=== PATIENT | male | born 1980 | race Caucasian/White ===

== ENCOUNTER 2019-07-28 14:49 | Emergency (ER) | payer BC ==
[2019-07-28 14:52] VITALS: BMI 26.6
[2019-07-28] MEDS ORDERED: ONDANSETRON 4 MG/2 ML VIAL IVPB ONE ×2 (14:53→15:42)
[2019-07-28] MEDS ORDERED: SODIUM CHLORIDE 1,000 ML IV STA (14:53)
[2019-07-28] MEDS ORDERED: KETOROLAC TROMETHAMINE 30 MG/1 ML VIAL IVPUSH ONE (14:54)
[2019-07-28] MEDS ORDERED: ONDANSETRON 4 MG/2 ML VIAL ONE ×2 (14:58→15:52)
[2019-07-28] MEDS ORDERED: KETOROLAC TROMETHAMINE 30 MG/1 ML VIAL ONE (14:58)
[2019-07-28 15:11] VITALS: BP 126/79; PULSE 78; TEMP 98.3
[2019-07-28 15:26] LABS: BASO % 0.3 % (0-2.0); EOS % 1.4 % (0-4.5); HEMATOCRIT 44.8 % (35.4-49); MCH 29.6 pg (25.7-33.7); MCHC 33.6 g/dl (32.0-35.9); MEAN CELL VOLUME 88.2 fl (80-96); MEAN PLT VOLUME 7.4 fl (7.5-11.1); MONO % 8.6 % (3.8-10.2); NEUT % 53.7 % (42.8-82.8); PLATELET COUNT 329 K/MM3 (134-434); RBC 5.08 M/mm3 (4.00-5.60); RDW 12.3 % (11.9-15.9); WHITE BLOOD COUNT 7.2 K/mm3 (4.0-10.8)
[2019-07-28 15:33] LABS: ALBUMIN 4.7 g/dl (3.4-5.0); BILIRUBIN,TOTAL 0.5 mg/dl (0.2-1); CALCIUM 9.9 mg/dl (8.5-10); CREATININE 1.1 mg/dl (0.55-1.3); POTASSIUM 3.9 mmol/L (3.5-5.1); TOT PROT 7.6 g/dl (6.4-8.2)
[2019-07-28] MEDS ORDERED: morphine CARPU-JECT 4 MG/1 ML DISP.SYRIN IVPUSH ONE (15:41)
[2019-07-28] MEDS ORDERED: morphine SULFATE 4 MG/ML VIAL ONE (15:53)
[2019-07-28] MEDS ORDERED: TAMSULOSIN HCL 0.4 MG CAP PO ONE (16:31)
--- NOTE | 2019-07-28 16:53 | PDOC ---
Documentation entered by Sari Ghosh SCRIBE, acting as scribe for Miki Burnett MD. Miki Burnett MD: This documentation has been prepared by the Davina thurman Adrianna, SCRIBE, under my direction and personally reviewed by me in its entirety. I confirm that the documentation accurately reflects all work, treatment, procedures, and medical decision making performed by me. History of Present Illness - General Chief Complaint: Pain, Acute Stated Complaint: BACK AND FLANK PAIN - History of Present Illness Initial Comments: The patient is a 38 year old male, with a significant PMH of TMJ, who presents to the ED for evaluation of low back pain and abdominal pain that began at 1pm today. Patient complains of sudden onset right-sided low back/flank pain that began 2 hours prior to arrival. He notes the pain is a 9/10 in nature and radiates to his right lower quadrant. Patient endorses multiple episodes of associated nausea and NBNB vomit. Denies any urinary symptoms, but does report difficulty urinating while in the ED. He states his last normal bowel movement was yesterday. Patient notes he has been taking Aleve for SI joint strain, and was last adjusted at the chiropractor yesterday. Denies any history of kidney stones. Allergies: Sensitivity to medications (always experiences the side effects) Surgical History: None reported Social History: Social EtOH use. Denies tobacco or illicit drug use. Past History - Past Medical History Allergies/Adverse Reactions: Allergies Allergy/AdvReac Type Severity Reaction Status Date / Time PAIN MEDS? AdvReac Uncoded 07/28/19 15:14 Home Medications: Ambulatory Orders Diclofenac Potassium 50 mg PO TID PRN #20 tablet 07/28/19 Ondansetron [Zofran *Odt*] 1 - 2 tab SL TID PRN #15 od.tablet 07/28/19 Oxycodone HCl/Acetaminophen [Percocet 5-325 mg Tablet] 1 - 2 tab PO Q4H PRN #12 tablet MDD 6 07/28/19 COPD: No - Psycho Social/Smoking Cessation Hx Smoking History: Never smoked Hx Alcohol Use: No Drug/Substance Use Hx: No Review of Systems - Review of Systems Comments:: GENERAL/CONSTITUTIONAL: No fever or chills. No weakness. HEAD, EYES, EARS, NOSE AND THROAT: No change in vision. No ear pain or discharge. No sore throat. CARDIOVASCULAR: No chest pain or shortness of breath. RESPIRATORY: No cough, wheezing, or hemoptysis. GASTROINTESTINAL: +Nausea. +NBNB vomit. +RLQ pain. No diarrhea or constipation. GENITOURINARY: +Difficulty urinating. No dysuria, frequency, or hematuria. MUSCULOSKELETAL: +Right low back/flank pain. No joint or muscle swelling or pain. No neck pain. SKIN: No rash NEUROLOGIC: No headache, vertigo, loss of consciousness, or change in strength/ sensation. ENDOCRINE: No increased thirst. No abnormal weight change. HEMATOLOGIC/LYMPHATIC: No anemia, easy bleeding, or history of blood clots. ALLERGIC/IMMUNOLOGIC: No hives or skin allergy. *Physical Exam - Vital Signs Last Vital Signs Temp Pulse Resp BP Pulse Ox 0/0 L 07/28/19 14:50 - Physical Exam Comments: GENERAL: Awake, alert, and fully oriented, in no acute distress HEAD: No signs of trauma EYES: PERRLA, EOMI, sclera anicteric, conjunctiva clear. No pallor or icterus. ENT: Auricles normal inspection, hearing grossly normal, nares patent, oropharynx clear without exudates. Moist mucosa NECK: Normal ROM, supple, no lymphadenopathy, JVD, or masses LUNGS: Breath sounds equal, clear to auscultation bilaterally. No wheezes, and no crackles HEART: Regular rate and rhythm, normal S1 and S2, no murmurs, rubs or gallops ABDOMEN: +Somewhat distended with decreased bowel sounds, although they are present. +Moderate to severe right lower quadrant and right mid-abdominal tenderness to palpation, with suggestion of guarding and rebound. No masses or hernias. GENITOURINARY: No abnormalities. EXTREMITIES: Normal range of motion, no edema. No clubbing or cyanosis. No cords, erythema, or tenderness NEUROLOGICAL: Cranial nerves II through XII grossly intact. Normal speech, normal gait SKIN: Warm, Dry, normal turgor, no rashes or lesions noted. No pallor or icterus. ED Treatment Course - LABORATORY CBC & Chemistry Diagram: 07/28/19 14:55 07/28/19 14:55 - RADIOLOGY Radiograph Interpretation: EXAM#: TYPE/EXAM: RESULT: [id number] CT/ABDOMEN PELVIS CT W/O CONTR Clinical history: 38-year-old man with Comparison: Specified abdominal pain. None. Impression: Mild right hydronephrosis and proximal hydroureter to the level of a 4.5 mm proximal ureteral calculus at L3. Left renal cyst. Mild mesenteric panniculitis. Hepatomegaly with a fatty liver. Clinical correlation advised. Reported By: Juancarlos Meza MD 07/28/19 16:16 Medical Decision Making - Medical Decision Making 07/28/19 14:54 Right flank pain radiating to the right lower quadrant and groin since 1 PM accompanied by nausea vomiting. Had difficulty obtaining a specimen of urine upon arrival, although he had not noticed any urinary symptoms before. Has been taking Aleve for low back strain on the left. No other regular medications and no other significant medical or surgical problems. 07/28/19 17:19 CBC and chemistries: No significant abnormalities Urinalysis is clear. There is no blood. CT scan reveals 4.5 mm stone proximal right ureter, with hydroureter and mild hydronephrosis. Despite Toradol and Zofran, patient still experiencing intermittent pain and nausea, with some retching. Refuses additional medication including morphine, reglan. Request to go home and attempt to pass the stone on his own. Patient at present is comfortable. Pain has subsided. No nausea or retching. Dr. Gomez contacted by phone. The clinical presentation as well as the CT scan were discussed. He feels that the stone will most likely pass, considering its size and location. He will see the patient tomorrow for follow- up in his office. Patient discharged with pain controlled, no nausea or retching, and the company of his to follow-up as directed. He is instructed to return to the ER if there is severe pain in it is uncontrolled with the medications prescribed. Discharge - Discharge Information Problems reviewed: Yes Clinical Impression/Diagnosis: Renal colic on right side Condition: Improved Disposition: HOME - Admission No - Additional Discharge Information Prescriptions: Diclofenac Potassium 50 mg PO TID PRN #20 tablet PRN Reason: Pain Ondansetron [Zofran *Odt*] 1 - 2 tab SL TID PRN #15 od.tablet PRN Reason: Nausea And/Or Vomiting Oxycodone HCl/Acetaminophen [Percocet 5-325 mg Tablet] 1 - 2 tab PO Q4H PRN #12 tablet MDD 6 PRN Reason: Severe Pain - Follow up/Referral Referrals: Camacho Gomez MD [Staff Physician] - 24 hours - Patient Discharge Instructions Patient Printed Discharge Instructions: DI for Kidney Stones Additional Instructions: Drink fluids, take nausea medication and pain medication as needed Return to ER if pain is uncontrolled with medication. See urologist for follow-up tomorrow as directed. - Post Discharge Activity
[2019-07-28] MEDS ORDERED: TAMSULOSIN HCL 0.4 MG CAP ONE (17:03)
== END 2019-07-28 17:21 | disposition home or self-care (01) ==
LOC: FER 14:49
PROC: 3E0333Z Introduction of Anti-inflammatory into Peripheral Vein, Percutaneous Approach (ICD-10-PCS; principal; 2019-07-28)
PROC: 3E033GC Introduction of Other Therapeutic Substance into Peripheral Vein, Percutaneous Approach (ICD-10-PCS; 2019-07-28)
DX: N20.0 Calculus of kidney (principal); Z88.8 Allergy status to other drugs, medicaments and biological substances; M26.609 Unspecified temporomandibular joint disorder, unspecified side
CPT/HCPCS: 36415; 74176-TC; 80053; 81003; 85025; 99284-25; J7030